=== PATIENT | female | born 1975 | race Caucasian/White ===

== ENCOUNTER 2024-10-16 13:38 | Emergency (ER) | payer BC, SELFPAY ==
[2024-10-16 13:44] VITALS: BP 132/87
[2024-10-16 13:52] LABS: Glucose - Point of Care 300 mg/dl (70-99)
[2024-10-16 14:06] LABS: % Basophils 0.9 % (0-2); % Eosinophils 2.2 % (0-6); % Immature Granulocytes 0.4 % (0-0.5); % Lymphocytes 29.2 % (20.5-51.1); % Monocytes 6.1 % (1.7-9.3); % Neutrophils 61.2 % (42.2-75.2); Absolute Basophils 0.1 10^3/uL (0-0.2); Absolute Eosinophils 0.2 10^3/uL (0-0.7); Absolute Lymphocytes 2.4 10^3/uL (1.2-3.4); Absolute Monocytes 0.5 10^3/uL (0.1-0.6); Hematocrit 45.3 % (37.0-47.0); Hemoglobin 16.3 g/dL (12.0-16.0); Mean Corpuscular Hgb 36.5 pg (27.0-31.0); Mean Corpuscular Volume 101.3 fL (81.0-99.0); Mean Platelet Volume 10.3 fL (7.4-10.4); Nucleated Red Blood Cells % 0 %; Platelet Count 315 10^3/uL (130-400); Red Blood Cell Count 4.47 10^6/uL (4.20-5.40); Red Cell Dist. Width 12.3 % (11.5-14.5); White Blood Cell Count 8.2 10^3/uL (4.8-10.8)
[2024-10-16 14:21] LABS: ALT (SGPT) 44 U/L (0-35); AST (SGOT) 40 U/L (14-36); Albumin 5.7 g/dl (3.5-5.0); Alkaline Phosphatase 83 U/L (38-126); Blood Urea Nitrogen 12 mg/dl (7-17); Calcium 10.4 mg/dl (8.4-10.2); Carbon Dioxide 23 mmol/L (22-30); Chloride 96 mmol/L (98-107); Glucose 304 mg/dl (70-99); Potassium 4.9 mmol/L (3.5-5.1); Sodium 134 mmol/L (135-145); Total Bilirubin 0.6 mg/dl (0.2-1.3); Total Protein 8.6 g/dl (6.3-8.2); eGFR > 60.00
[2024-10-16] MEDS: NSS 1000 IV (15:32)
[2024-10-16 16:38] LABS: Urine Albumin Negative (Neg - Trace); Urine Bilirubin Negative (Negative); Urine Character Clear (Clear); Urine Color Straw; Urine Glucose 3+ (Negative); Urine Ketone Negative (Negative); Urine Leukocyte Negative (Negative); Urine Nitrite Negative (Negative); Urine Occult Blood Negative (Negative); Urine Specific Gravity 1.015 (<1.030); Urine Urobilinogen Negative (Neg - 1+)
[2024-10-16 17:14] LABS: Glucose - Point of Care 234 mg/dl (70-99)
--- NOTE | 2024-10-16 17:19 | ED.GENMED ---
History of Present Illness
General
Chief Complaint: Abnormal Lab Value
Source: patient
Time Seen by Provider: 10/16/24 14:43
History of Present Illness
History of Present Illness:
48yoF with no known medical problems presenting for evaluation of abnormal outpatient lab work. Patient was seen by her PCP 3 days ago and was sent for routine lab work. Her glucose was found to be 491 and A1c was 14.9. She was called today and
to the ED for evaluation. She has not seen her PCP or had blood work for several years prior to this. Patient reports polyuria and polydipsia over the past year or so. She has also been having some blurred vision over the past several months.
Patient is otherwise asymptomatic. She is not currently on any medications.
Phy Exam
General Physical Exam
General Presentation: well appearing and no apparent distress
General age: appears stated age
General Skin: warm and dry
General Habitus: normal
General Mental: alert
ENT Exam
ENT Exam: normocephalic
Pulmonary Exam
Pulmonary Exam: no respiratory distress
Neurological Exam
Neurological Exam: alert
Amilcar Coma Scale
Eye Opening: Spontaneous
Verbal Response: Oriented
Motor Response: Obeys Commands
GCS Total Score: 15
Skin Exam
Skin Exam: normal color and warm/dry
Psychiatric Exam
Psychiatric Exam: normal mood/affect
Course
Orders/Labs/Results
Orders:
Orders
10/16/24 13:53
CBC/With Diff [Complete Blood Count/With Diff] Urgent
Comprehensive Metabolic Panel Urgent
10/16/24 14:54
0.9% Sodium Chloride 1000 ml [Nss] 1,000 ml IV BOLUS
10/16/24 16:19
Urinalysis Reflex To Culture Urgent
Date Specimen was Collected: 10/16/24
Time Specimen was Collected: 15:04
10/16/24 16:35
Bedside Glucose- Treatment ONCE
Abnormal Lab Results
10/16/24 10/16/24 10/16/24
13:50 13:53 16:19
Hgb 16.3 H g/dL
(12.0-16.0)
MCV 101.3 H fL
(81.0-99.0)
MCH 36.5 H pg
(27.0-31.0)
Sodium 134 L mmol/L
(135-145)
Chloride 96 L mmol/L
(98-107)
Glucose 304 H mg/dl
(70-99)
Calcium 10.4 H mg/dl
(8.4-10.2)
AST 40 H U/L
(14-36)
ALT 44 H U/L
(0-35)
Total Protein 8.6 H g/dl
(6.3-8.2)
Albumin 5.7 H g/dl
(3.5-5.0)
Urine Glucose 3+ A
(Negative)
POC Glucose 300 H mg/dl
(70-99)
10/16/24
17:12
Hgb
MCV
MCH
Sodium
Chloride
Glucose
Calcium
AST
ALT
Total Protein
Albumin
Urine Glucose
POC Glucose 234 H mg/dl
(70-99)
10/16/24 13:53
10/16/24 13:53
Vital Signs
Initial and Last Documented VS:
Initial Vital Signs
Temp Pulse Resp BP Pulse Ox
98.6 F 88 16 132/87 98
10/16/24 13:44 10/16/24 13:44 10/16/24 13:44 10/16/24 13:44 10/16/24 13:44
Last Documented Vital Signs
Temp Pulse Resp BP Pulse Ox
98.6 F 88 17 132/87 98
10/16/24 13:44 10/16/24 13:44 10/16/24 16:00 10/16/24 13:44 10/16/24 16:18
MDM/Problems Addressed
Differential Diagnosis Includes:
48yoF here for hyperglycemia found on routine outpatient labs. Glucose reportedly 491 and A1c 14.9. No prior hx of diabetes. C/o polyuria/polydipsia x 1 year and blurred vision x several months. She is afebrile and hemodynamically stable. She is
well-appearing in no acute distress. Exam reassuring. Differential diagnosis includes but is not limited to: New onset diabetes, hyperglycemia, DKA
Initial ED plan: CBC and CMP obtained in triage. Glucose 304. Bicarb is normal ruling out DKA. Sodium 134. Will obtain UA and give IV fluid bolus.
*Critical Care Note
Total Time (30-74mins, 75-104mins- exclusive of procedures): Not Applicable
Update Note
Update Note:
UA with 3+ glucose but otherwise normal. No ketones present on urinalysis. Glucose improved to 234 after fluid bolus. Attempted to consult in service educator although they are no longer in house today. I also attempted to call PCPs office but did
not receive a response. No indication for hospitalization at this time. Will start on metformin 1000 mg twice daily. She was advised to follow-up with her PCP on Saturday for close follow-up. She will likely need additional medications. ED return
precautions discussed. She was discharged in stable condition.
ED Attending Note
-
Portions of this chart may have been created with voice recognition software.� Occasional wrong word or��sound alike� substitutions may have occurred due to the inherent limitations of voice recognition software.
Discharge Plan
Departure
Patient Disposition: Home (Routine Discharge)
Date of Disposition: 10/16/24
Time of Disposition: 17:17
Patient with high blood pressure during this ER visit?: No
Discharge Problem:
Diabetes mellitus, new onset
Instructions: Carb counting for adults with diabetes, Metformin, Type 2 diabetes - Discharge instructions
Prescriptions:
New
metformin 1,000 mg tablet
1,000 mg PO BID Qty: 60 0RF
Referrals:
Robin Pino DO [Family Provider] -
Activity Restrictions/Additional Instructions:
Take metformin as prescribed.
Please follow-up with your family doctor on Saturday for further care.
Return to the ER with any worsening symptoms or confusion.
Interventions
Interventions:
*Risk Screen - Suicide Last Done: 10/16/24 13:44
*Neglect/Abuse Screening Last Done: 10/16/24 13:44
ED- Fall Risk Assessment Last Done: 10/16/24 15:45
*Nursing Disposition Last Done: 10/16/24 17:34
Discharge Date and Time
Discharge Date/Time: 10/16/24 17:41
Print Language: DANISH
== END 2024-10-16 17:41 | disposition home or self-care (01) ==
LOC: EMR 13:38
PROVIDERS: Physician Assistant; Student in an Organized Health Care Education/Training Program; EMERGENCY PHYSICIAN Emergency Medicine; FAMILY PHYSICIAN Family Medicine
DX: E11.65 Type 2 diabetes mellitus with hyperglycemia (principal)
CPT/HCPCS: 99284; 96360; 80053; 81003; 82962; 85025

== ENCOUNTER → 2024-12-08 13:09 | Outpatient (REF) | payer OTHER, SELFPAY | LOC: HWWDC 13:09 | PROVIDERS: ATTENDING PHYSICIAN Nurse Practitioner Adult Health | DX: Z12.31 Encounter for screening mammogram for malignant neoplasm of breast (principal) | CPT/HCPCS: 77063; 77067 ==